=== PATIENT | female | born 1945 | race Caucasian/White ===

== ENCOUNTER 2017-01-13 16:00 | Outpatient (RCR) | payer BC, MEDICARE | END 2017-01-28 | disposition home or self-care (01) | LOC: OT 16:00 | PROVIDERS: ATTEND Family Medicine | DX: G56.03 Carpal tunnel syndrome, bilateral upper limbs (principal); R27.8 Other lack of coordination ==

== ENCOUNTER → 2017-03-13 | Outpatient (CLI) | payer BC, MEDICARE ==
[~2017-03-13] MED LIST: ALBU6.7H IH; AMOX500T2 PO; LOVA20TA2 PO; METH4TAB27 PO; SULF1TAB35 PO
--- NOTE | 2017-03-13 12:37 | Diagnostic Imaging Report ---
INDICATION: Back pain. Thoracic spine: FINDINGS: AP and lateral views of the thoracic spine show normal vertebral body height and alignment. Disc spaces are well maintained. Pedicles appear to be intact. IMPRESSION: Negative thoracic spine. Dictated by: Dictated on workstation # [id number]
--- NOTE | 2017-03-13 14:32 | Diagnostic Imaging Report ---
INDICATION: Postmenopausal, screening for osteoporosis. COMPARISON: None. DISCUSSION: Bone mineral density measurements of the lumbar spine and bilateral hips were performed on a [employer] DEXA scanner. Bone mineral density within the lumbar spine measures 0.969 g per centimeter squared which correlates to a T score of -1.9, osteopenic. Bone mineral density within the left hip measures 0.743 g per centimeter squared which correlates to a T score of -2.1, osteopenic. Bone mineral density within the right hip measures 0.729 g per centimeter squared which correlates to a T score of -2.3, osteopenic. Exam is considered osteopenic by World Health Organization guidelines with a moderate increased fracture risk. Recommend initiation of treatment. Recommend one-year followup DEXA scan. IMPRESSION: 1. Low bone mineral density measurements within the lumbar spine and bilateral hips within the osteopenic range with an associated increased fracture risk. Dictated by: Dictated on workstation # [id number]
--- NOTE | 2017-03-14 09:13 | Diagnostic Imaging Report ---
INDICATION: Screening mammogram COMPARISON: 02/28/2015, 12/23/2013 FAMILY HISTORY: Negative Bilateral digital mammography is performed with computer assisted detection (CAD) software utilization. There are no reported clinical signs and/or symptoms of breast cancer. The breast tissue pattern is composed of a mild amount of fibroglandular tissue. No dominant mass, suspicious microcalcification, or other significant abnormality is identified. IMPRESSION: 1. Negative for malignancy. Follow-up mammography in one year is recommended. ACR BI-RADS Category 1: Negative Result letter will be mailed to the patient. Note: At least 10% of breast cancer is not imaged by mammography. Dictated by: Dictated on workstation # [id number]
== END ==
LOC: RAD 07:48
PROVIDERS: ATTEND Family Medicine
DX: Z12.31 Encounter for screening mammogram for malignant neoplasm of breast (principal); Z78.0 Asymptomatic menopausal state; M54.6 Pain in thoracic spine
CPT/HCPCS: 72072; 77080; G0202